=== PATIENT | female | born 1955 | race Caucasian/White ===

== ENCOUNTER → 2018-02-02 | Outpatient (CLI) | payer BC ==
[~2018-02-02] MED LIST: IOPAMIDOL 370 MG/ML 200 ML INFUS..BTL INJ ONE; SODIUM CHLORIDE 0.9% 100 ML ONE
[2018-02-02 08:11] LABS: BLOOD UREA NITROGEN 16 mg/dL (7-26); BUN/CREATININE RATIO 20 (6-25); CREATININE, SERUM 0.81 mg/dL (0.57-1.11); EST GLOMERULAR FILTRATION RATE > 60 ML/MIN (60-)
--- NOTE | 2018-02-02 11:00 | Diagnostic Imaging Report ---
History: High cholesterol Comparison studies:None Technique: Axial images were obtained from the thoracic inlet. Coronal and sagittal images reconstructed from the axial data. Intravenous contrast: 100 cc of Omnipaque 300. Findings: Percentage of stenosis will be based on the NASCET criteria. Aortic arch and major vessels: Patent. No abnormalities. Common carotid arteries: Patent. No abnormalities. Right internal carotid artery: Patent. No abnormalities. Left internal carotid artery: Patent. Nonstenotic atherosclerotic calcification at the left carotid bulb. Right vertebral artery: Patent. No abnormalities. Left vertebral artery: Patent. No abnormalities. Facet and uncinate process hypertrophy results in mild left foraminal narrowing at C3-4 and mild right foraminal narrowing at C4-5. Straightening of the cervical spine lordosis IMPRESSION: No stenosis at the neck arteries. Signed by: DR Joshua Mckeon M.D. on 02/02/2018 10:56 AM
== END | disposition home or self-care (01) ==
LOC: CT 07:26
PROVIDERS: ATTEND Internal Medicine
DX: I65.29 Occlusion and stenosis of unspecified carotid artery (principal)
CPT/HCPCS: 36415; 70498; 82565; 84520; J7050; Q9967